=== PATIENT | male | born 2000 | race Caucasian/White ===

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

== ENCOUNTER 2022-02-12 17:13 | Emergency (ER) | payer OTHER ==
[~2022-02-12] VITALS: Ht 180.3 cm; Wt 61.2 kg
[~2022-02-12 17:13] MED LIST: ACET-10509 PO; IBUP-1842 PO
[2022-02-12 17:23] VITALS: BP 104/73
--- NOTE | 2022-02-12 17:28 | NUR ---
PT AMBULATED WITH CRUTCHES TO ER BED 7
[2022-02-12] MEDS ORDERED: IBUPROFEN 600 MG TAB PO ONE (17:55)
--- NOTE | 2022-02-12 18:01 | NUR ---
XRAY AT BEDSIDE
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
[2022-02-12] MEDS ORDERED: IBUP-2213 PO (18:43)
--- NOTE | 2022-02-12 18:50 | NUR ---
PER ER MID LEVEL, SALOMON WRAP APPLIED TO PT R ANKLE. + CMS
== END 2022-02-12 18:52 | disposition home or self-care (01) ==
LOC: MED 17:13
DX: S93.601A Unspecified sprain of right foot, initial encounter (principal); Z79.899 Other long term (current) drug therapy; X58.XXXA Exposure to other specified factors, initial encounter; Y93.89 Activity, other specified; Y92.89 Other specified places as the place of occurrence of the external cause; Y99.0 Civilian activity done for income or pay
CPT/HCPCS: 73630; 99283